=== PATIENT | male | born 1990 | race Caucasian/White ===

== ENCOUNTER 2019-08-26 18:39 | Emergency (ER) | payer OTHER ==
[~2019-08-26] VITALS: Ht 172.7 cm; Wt 163.3 kg
[2019-08-26 18:56] VITALS: BP 125/86; Ht 172.7 cm; Wt 163.3 kg
== END 2019-08-26 19:42 | disposition home or self-care (01) ==
LOC: ED 18:39
DX: H61.23 Impacted cerumen, bilateral (principal); F42.9 Obsessive-compulsive disorder, unspecified; Z88.2 Allergy status to sulfonamides

== ENCOUNTER 2019-10-25 15:18 | Emergency (ER) | payer OTHER ==
[~2019-10-25] VITALS: Ht 177.8 cm; Wt 158.8 kg
[2019-10-25 15:26] VITALS: Ht 177.8 cm; Wt 158.8 kg
[2019-10-25 16:00] LABS: BASOPHIL % 0.8 % (0-2); PLATELET COUNT 313 x10^3mcL (130-400); RED CELL DISTRIBUTION WIDTH 13.8 % (11.5-14.5)
[2019-10-25 16:13] LABS: CALCIUM 8.4 mg/dL (8.5-10.1); CARBON DIOXIDE 27.7 mmol/L (21-32); CHLORIDE SERUM 102 mmol/L (98-107); CREATININE SERUM 1.1 mg/dL (0.7-1.3); GFR1 > 60 mL/min; GLUCOSE SERUM 97 mg/dL (74-106); POTASSIUM SERUM 3.2 mmol/L (3.5-5.1); SODIUM SERUM 141 mmol/L (136-145)
[2019-10-25 16:17] LABS: ALKALINE PHOSPHATASE 147 U/L (46-116); ALT/SGPT 25 U/L (16-63); AST/SGOT 15 U/L (15-37); BILIRUBIN TOTAL 0.2 mg/dL (0.20-1.00); TOTAL PROTEIN, SERUM 7.3 g/dL (6.4-8.2)
[2019-10-25 17:30] LABS: AMPHETAMINE QUAL UR NONE DETECTED (See below)
[2019-10-25] MEDS ORDERED: KLONOPIN1 MG PO (21:40)
[2019-10-25] MEDS ORDERED: TRAZODONE100 MG PO (22:07)
[2019-10-25] MEDS ORDERED: PROZAC10 M2 PO (22:08)
[2019-10-25] MEDS ORDERED: TRILEPTAL300 MG PO (22:09)
[2019-10-25] MEDS ORDERED: RISPERDAL3 M1 PO (22:09)
[2019-10-25] MEDS ORDERED: [UNRECOGNIZED DRUG - CODE] PO (22:09)
[2019-10-26 08:33] VITALS: BP 119/77
== END 2019-10-26 08:33 | disposition short-term general hospital (02) ==
LOC: ED 15:18
PROVIDERS: Emergency Medicine
DX: R45.851 Suicidal ideations (principal); F41.9 Anxiety disorder, unspecified; L98.9 Disorder of the skin and subcutaneous tissue, unspecified; Z88.2 Allergy status to sulfonamides
CPT/HCPCS: 36415; G0480